=== PATIENT | female | born 1945 | race Caucasian/White ===

== ENCOUNTER 2018-12-02 14:31 | Outpatient (CLI) | payer MEDICARE, BC | END 2018-12-02 14:32 | disposition home or self-care (01) | LOC: LAB 14:31 | PROVIDERS: ATTEND Internal Medicine Critical Care Medicine | DX: B38.2 Pulmonary coccidioidomycosis, unspecified (principal) | CPT/HCPCS: 36415; 81599; 86635 ==

== ENCOUNTER 2019-02-25 21:56 | Emergency (ER) | payer MEDICARE, BC ==
[2019-02-25] MEDS ORDERED: FAMOTIDINE 20 MG TABLET PO STA (22:21)
[2019-02-25 22:29] VITALS: BP 137/69
[2019-02-25 22:37] LABS: BASOPHILS # (AUTO) 0.1 10^3/uL (0.0-0.1); BASOPHILS % (AUTO) 0.7 %; EOSINOPHILS % (AUTO) 11.7 %; HGB - HEMOGLOBIN 12.4 g/dL (12.0-16.0); LYMPHOCYTES # (AUTO) 2.6 10^3/uL (1.5-3.5); LYMPHOCYTES % (AUTO) 30.6 %; MEAN CORPUSCULAR HEMOGLOBIN 30.4 pg (27.0-31.0); MEAN CORPUSCULAR HGB CONC 33.5 g/dL (32.0-36.0); MEAN CORPUSCULAR VOLUME 90.7 fL (81.0-99.0); MEAN PLATELET VOLUME 9.7 fL (7.9-10.8); MONOCYTES # (AUTO) 0.5 10^3/uL (0.0-1.0); MONOCYTES % (AUTO) 5.7 %; NEUTROPHILS # (AUTO) 4.3 10^3/uL (1.5-6.6); NEUTROPHILS % (AUTO) 50.9 %; PLT - PLATELET COUNT 190 10^3/uL (130-450); RED BLOOD COUNT 4.08 10^6/uL (4.20-5.40); RED CELL DISTRIBUTION WIDTH 12.9 % (12.0-15.0); WHITE BLOOD COUNT 8.4 x10^3/uL (4.8-10.8)
--- NOTE | 2019-02-25 22:43 | XRAY Report ---
Reason: chest pain after dinner Procedure Date: 02/25/2019 Accession Number: [id number] / [id number] Procedure: XR - Chest 1 View X-Ray CPT Code: 61392 FULL RESULT: EXAM: CHEST RADIOGRAPHY EXAM DATE: 02/25/2019 10:14 PM. CLINICAL HISTORY: Chest pain after dinner. COMPARISON: None. TECHNIQUE: 1 view. FINDINGS: Lungs/Pleura: Left midlung medial nodular opacification, measures 1.5 x 1.6 cm, could represent a pulmonary nodule versus confluence of vessels. No pleural effusion or pneumothorax. Mediastinum: Within exam limitations, the cardiomediastinal contour is normal. IMPRESSION: Left midlung medial nodular opacification, measures 1.5 x 1.6 cm, could represent a pulmonary nodule versus confluence of vessels. A chest CT with IV contrast could be obtained to further evaluate. RADIA
[2019-02-25 22:46] LABS: CALCIUM 9.4 mg/dL (8.5-10.3); CREATININE 0.7 mg/dL (0.4-1.0)
--- NOTE | 2019-02-25 23:03 | ED Physician Documentation ---
PD HPI CHEST PAIN - Stated complaint Stated Complaint: TIGHT CHEST/BK PX - Chief complaint Chief Complaint: Cardiac - History obtained from History obtained from: Patient - History of Present Illness Timing - onset: How many years ago (2), Other (she has had intermittent attacks of spasms in her upper abdomen and chest for 2 years, and had 2 attacks lasting a minute each at rest before and after dinner. has resolved now but had a feeling of mild chest pressure constantly after.) Timing - duration: Minutes (1) Timing - details: Abrupt onset Severity Comments: moderate, now resolved Quality: Sharp, Other (spasm) Location: Substernal, Epigastric Radiation: Other (chest) Improved by: Nothing Worsened by: Other (unknown, possibly worse after eating) Associated symptoms: Nausea. No: Shortness of air, Diaphoresis, Vomiting, Feeling faint / dizzy, General Weakness, Palpitations, Cough Similar symptoms before: Other (has had symptoms for 2 years but has not been evaluated) Recently seen: Not recently seen - Treatment prior to arrival Treatment prior to arrival: none - Additional information Additional information: She has a hx of pancreatic cancer in remission s/p whipple and thus has no pancreas or gallbladder. She reports she has had these symptoms ever since her surgery. Denies fever, chills. Denies sob. Symptoms not worse with exertion. Review of Systems Ten Systems: 10 systems reviewed and negative Constitutional: denies: Fever Cardiac: reports: Chest pain / pressure. denies: Palpitations Respiratory: denies: Dyspnea, Cough, Hemoptysis, Wheezing GI: reports: Abdominal Pain, Nausea. denies: Vomiting, Constipation, Diarrhea, Hematemesis, Bloody / black stool : reports: Reviewed and negative Skin: reports: Reviewed and negative Neurologic: reports: Reviewed and negative Immunocompromised: reports: Reviewed and negative PD PAST MEDICAL HISTORY - Past Medical History Past Medical History: Yes Cardiovascular: None Respiratory: None Neuro: None Endocrine/Autoimmune: None GI: None E [employer]: Breast cancer : None HEENT: None Psych: None Musculoskeletal: None Derm: None - Past Surgical History Past Surgical History: Yes General: Cholecystectomy, Other Ortho: Knee replacement, Spine surgery - Allergies Allergies/Adverse Reactions: Allergies Allergy/AdvReac Type Severity Reaction Status Date / Time No Known Drug Allergies Allergy Verified 02/25/19 22:00 - Social History Does the pt smoke?: No Smoking Status: Never smoker Does the pt drink ETOH?: Yes Does the pt have substance abuse?: No - Immunizations Immunizations are current?: Yes - POLST Patient has POLST: No PD ED PE NORMAL - Vitals Vital signs reviewed: Yes - General General: Alert and oriented X 3, No acute distress, Well developed/nourished - HEENT HEENT: Atraumatic, Pharynx benign - Neck Neck: Supple, no meningeal sign, No JVD - Cardiac Cardiac: RRR, No murmur, No gallop, No rub, Strong equal pulses - Respiratory Respiratory: No respiratory distress, Clear bilaterally - Abdomen Abdomen: Soft, Non tender, Non distended - Female Female : Deferred - Rectal Rectal: Deferred - Derm Derm: Normal color, Warm and dry, No rash - Extremities Extremities: No deformity, No edema - Neuro Neuro: Alert and oriented X 3 Eye Opening: Spontaneous Motor: Obeys Commands Verbal: Oriented GCS Score: 15 - Psych Psych: Normal mood, Normal affect Results - Vitals Vitals: Vital Signs - 24 hr 02/25/19 02/25/19 02/25/19 22:00 22:25 23:09 Temperature 36.5 C Heart Rate 61 66 Respiratory 16 18 Rate Blood Pressure 132/72 H 137/69 H Blood Pressure 137/69 H [Left] O2 Saturation 98 96 Oxygen O2 Source Room air - EKG (time done) 22:00 Rate: Rate (enter#) (60) Rhythm: NSR New Site: LAD Intervals: Normal UT, QRS normal. No: Prolonged QT QRS: Normal Ischemia: Normal ST segments. No: ST elevation c/w ischemia Computer interpretation: Agree with computer - Labs Labs: Laboratory Tests 02/25/19 02/25/19 02/25/19 22:31 22:31 22:31 WBC 8.4 RBC 4.08 L Hgb 12.4 Hct 37.0 MCV 90.7 MCH 30.4 MCHC 33.5 RDW 12.9 Plt Count 190 MPV 9.7 Neut # (Auto) 4.3 Lymph # (Auto) 2.6 [place] # (Auto) 0.5 Eos # (Auto) 1.0 H Baso # (Auto) 0.1 Absolute Nucleated RBC 0.00 Nucleated RBC % 0.0 Sodium 138 Potassium 3.7 Chloride 104 Carbon Dioxide 25 Anion Gap 9.0 BUN 14 Creatinine 0.7 Estimated GFR (MDRD) 82 L Glucose 126 H Calcium 9.4 Troponin I High Sens 2.8 - Rads (name of study) chest xray Radiology: EMP read contemporaneously, See rad report PD MEDICAL DECISION MAKING - ED course Complexity details: reviewed results, re-evaluated patient, considered differential, d/w patient, d/w family ED course: ddx- diffuse esophageal spasm, gerd, acs, costochondritis, atypical chest pain 73 y/o F with hx and exam s documented. Very low risk symptoms for ACS, here has normal ekg, with neg troponin and normal cxr. Symptoms here have improved with pepcid. I feel she likely has esophageal spasms and thus will refer pt back to her PCP to evaluate this. Discussed return precautions in case of worsening pain, vomiting, sob or new concerning symptoms. Departure - Departure Disposition: 01 Home, Self Care Clinical Impression: Atypical chest pain Condition: Stable Record reviewed to determine appropriate education?: Yes Instructions: ED Chest Pain Atypical Unkn Cause Follow-Up: your, director of user experience [Other] Comments: You were evaluated today for chest pain and had normal labs, chest xray and ekgs. There is no evidence of a heart attack. I suspect your symptoms are GI related and may be due to esophageal spasm or gastritis. You can try pepcid for your symptoms which is what you were given in the Emergency Department. Follow up with your doctor to further discuss your symptoms and evaluate you for esophageal spasm. Discharge Date/Time: 02/25/19 23:09
== END 2019-02-25 23:09 | disposition home or self-care (01) ==
LOC: ED 21:56
DX: R07.89 Other chest pain (principal); R10.13 Epigastric pain; R11.0 Nausea; Z85.07 Personal history of malignant neoplasm of pancreas; Z85.3 Personal history of malignant neoplasm of breast
CPT/HCPCS: 36415; 71045; 80048; 84484; 85025; 93005; 99283; 99284; A9270

== ENCOUNTER 2020-01-05 14:30 | Outpatient (CLI) | payer MEDICARE, BC ==
[2020-01-05 15:05] LABS: ALBUMIN 4.2 g/dL (3.2-5.5); ALKALINE PHOSPHATASE 80 IU/L (42-121); ALT ALANINE AMINOTRANSFERASE 17 IU/L (10-60); AST ASPARTATE AMINOTRANSFERASE 19 IU/L (10-42); BILIRUBIN,TOTAL 0.4 mg/dL (0.2-1.0); TOTAL PROTEIN 6.8 g/dL (6.7-8.2)
[2020-01-05 15:23] LABS: BILIRUBIN,DIRECT < 0.1 mg/dL (0.1-0.5)
== END 2020-01-05 14:31 | disposition home or self-care (01) ==
LOC: LAB 14:30
PROVIDERS: ATTEND Internal Medicine Critical Care Medicine
DX: R91.1 Solitary pulmonary nodule (principal)
CPT/HCPCS: 36415; 80076; 81599; 86635

== ENCOUNTER 2020-06-08 09:42 | Outpatient (CLI) | payer MEDICARE, BC ==
[2020-06-08 10:49] LABS: ALBUMIN 4.2 g/dL (3.2-5.5); BILIRUBIN,DIRECT 0.1 mg/dL (0.1-0.5); BILIRUBIN,TOTAL 0.3 mg/dL (0.2-1.0); TOTAL PROTEIN 6.6 g/dL (6.7-8.2)
== END 2020-06-08 09:43 | disposition home or self-care (01) ==
LOC: LAB 09:42
PROVIDERS: ATTEND Internal Medicine Critical Care Medicine
DX: B38.2 Pulmonary coccidioidomycosis, unspecified (principal)
CPT/HCPCS: 80076; 81599; 86635